=== PATIENT | male | born 1965 | race Caucasian/White ===

== ENCOUNTER → 2021-06-29 | Outpatient (CLI) | payer BC ==
[~2021-06-29] MED LIST: BACTRIM DS 8001 TA1 PO; KEFLEX500 MG PO
== END | disposition home or self-care (01) ==
LOC: COVID19 17:09
PROVIDERS: ATTEND Student in an Organized Health Care Education/Training Program
DX: Z11.52 Encounter for screening for COVID-19 (principal)